=== PATIENT | female | born 1940 | race Caucasian/White ===

== ENCOUNTER → 2017-12-23 | Outpatient (CLI) | payer OTHER ==
[~2017-12-23] MED LIST: CALCIUM 600 MG1 EACH PO; DAILY VITE1 EAC1 PO; FLEXERIL5 MG PO; LIPITOR10 MG PO; LO-DOSE ASPIRIN81 M1 PO; LOTREL 10/21 CAPSULE PO; PAXIL40 MG PO; PRILOSEC20 MG PO; SYNTHROID88 MCG PO
== END | disposition home or self-care (01) ==
LOC: NUC 07:45
DX: K80.20 Calculus of gallbladder without cholecystitis without obstruction (principal)
CPT/HCPCS: 78227; A9537